=== PATIENT | female | born 2000 ===

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

== ENCOUNTER 2020-06-14 00:37 | Emergency (ER) | payer OTHER ==
[~2020-06-14] VITALS: Wt 63.6 kg
[2020-06-14] MEDS ORDERED: TYLENOL 325MG325 MG PO (01:24)
[2020-06-14] MEDS ORDERED: MOTRIN 400400 MG/TAB PO ×2 (01:24→01:26)
[2020-06-14] MEDS ORDERED: ROBAXIN 50500 MG/TAB PO (01:26)
[2020-06-14 01:42] VITALS: BP 129/84; PULSE 118; TEMP 98.1
== END 2020-06-14 01:41 | disposition home or self-care (01) ==
LOC: COL.ER 00:37
DX: M25.511 Pain in right shoulder (principal); X50.1XXA Overexertion from prolonged static or awkward postures, initial encounter; Y93.84 Activity, sleeping
CPT/HCPCS: J1885